=== PATIENT | male | born 1955 | race Caucasian/White ===

== ENCOUNTER 2020-11-10 10:13 | Emergency (ER) | payer MEDICARE, OTHER ==
[~2020-11-10] VITALS: Ht 190.5 cm; Wt 108.0 kg
[~2020-11-10 10:13] MED LIST: BIFI4CAP PO; CANNABIS INH; CHOL500015 PO; CLON-364 PO; DULO20CA45 PO; GABA600T7 PO; HYDR-3653 PO; LACT-7 PO; LORA1TAB PO; MIRT15TA3 PO; OMEP40CA42 PO; ONDA4TAB7 PO; OXYM10TA PO; PANT40TA3 PO; PANT40TA6 PO; SIMV20TA19 PO; cymbalta; gabapentin; lorazapam; norco; prilosec; remeron
[2020-11-10 10:42] VITALS: BP 144/83
[2020-11-10] MEDS ORDERED: LIDOCAINE-MPF 1%, 2ML ONE (11:11)
[2020-11-10] MEDS ORDERED: LIDOCAINE-MPF 1%, 5ML INFIL ONE (11:30)
== END 2020-11-10 11:42 | disposition home or self-care (01) ==
LOC: ED 11:38
DX: S90.851A Superficial foreign body, right foot, initial encounter (principal); I10 Essential (primary) hypertension; E78.5 Hyperlipidemia, unspecified; X58.XXXA Exposure to other specified factors, initial encounter; Y93.89 Activity, other specified; Y92.89 Other specified places as the place of occurrence of the external cause; Y99.8 Other external cause status
CPT/HCPCS: 99284